=== PATIENT | female | born 1975 | race Caucasian/White ===

== ENCOUNTER 2016-05-17 08:29 | Day surgery (SDC) | payer BC ==
[~2016-05-17 08:29] MED LIST: ADVIL LIQUI-GE200 M2 PO; ALBUTEROL SULF8.5 G1 IH; AUGMENTIN875 MG PO; EFFEXOR XR150 M1 PO; IMITREX PO; MONTELUKAST SOD10 M1 PO; PRISTIQ100 MG PO; PRISTIQ50 MG PO; PROAIR HFA8.5 GM INH; RITALIN20 M1 PO; TOPAMAX50 M3 PO; TYLENOL500 MG PO; ZYRTEC10 M4 PO; ZYRTEC10 M7 PO
[2016-11-21] MEDS ORDERED: PERCOCET 5-3251 EACH PO (05:38)
[2016-11-21] MEDS ORDERED: ZOFRAN4 M2 PO (05:38)
[2016-11-21] MEDS ORDERED: CYCLOBENZAPRINE10 M1 PO (05:38)
== END 2016-05-17 15:20 ==
LOC: SHSB 08:29 → ORW 10:57 → PACU 12:47 → SHSB 13:30
PROC: 099T4ZZ Drainage of Left Frontal Sinus, Percutaneous Endoscopic Approach (ICD-10-PCS; principal; 2016-05-17)
PROC: 099S4ZZ Drainage of Right Frontal Sinus, Percutaneous Endoscopic Approach (ICD-10-PCS; 2016-05-17)
PROC: 09BV4ZZ Excision of Left Ethmoid Sinus, Percutaneous Endoscopic Approach (ICD-10-PCS; 2016-05-17)
PROC: 09BU4ZZ Excision of Right Ethmoid Sinus, Percutaneous Endoscopic Approach (ICD-10-PCS; 2016-05-17)
PROC: 09BR4ZZ Excision of Left Maxillary Sinus, Percutaneous Endoscopic Approach (ICD-10-PCS; 2016-05-17)
PROC: 09BQ4ZZ Excision of Right Maxillary Sinus, Percutaneous Endoscopic Approach (ICD-10-PCS; 2016-05-17)
PROC: 09BX4ZZ Excision of Left Sphenoid Sinus, Percutaneous Endoscopic Approach (ICD-10-PCS; 2016-05-17)
DX: J32.4 Chronic pansinusitis (principal); F41.9 Anxiety disorder, unspecified; F32.9 Major depressive disorder, single episode, unspecified; G43.909 Migraine, unspecified, not intractable, without status migrainosus; J45.909 Unspecified asthma, uncomplicated; Z79.899 Other long term (current) drug therapy; Z88.2 Allergy status to sulfonamides; Z98.890 Other specified postprocedural states
CPT/HCPCS: C1726; C2625